=== PATIENT | male | born 1975 | race Two or more races ===

== ENCOUNTER 2022-02-24 22:09 | Emergency (ER) | payer MEDICAID, OTHER ==
[~2022-02-24] VITALS: Ht 188 cm; Wt 109.0 kg
[2022-02-24 22:09] VITALS: BP 172/110
[2022-02-25] MEDS ORDERED: IBUP800T26 PO (00:35)
[2022-02-25] MEDS ORDERED: NEOMYCIN-BACITRACIN-POLYM UNITDOSE PKG TOP OINT TOP ONE (01:00)
== END 2022-02-25 01:25 | disposition home or self-care (01) ==
LOC: ER 22:09
DX: S61.211A Laceration without foreign body of left index finger without damage to nail, initial encounter (principal); F17.210 Nicotine dependence, cigarettes, uncomplicated; Z79.1 Long term (current) use of non-steroidal anti-inflammatories (NSAID); W23.0XXA Caught, crushed, jammed, or pinched between moving objects, initial encounter; Y93.89 Activity, other specified; Y92.89 Other specified places as the place of occurrence of the external cause; Y99.8 Other external cause status
CPT/HCPCS: 12002; 73140; 99283; J2001